=== PATIENT | female | born 1990 | race African-American/Black ===

== ENCOUNTER 2019-09-29 23:27 | Emergency (ER) | payer MEDICAID, OTHER ==
[~2019-09-29] VITALS: Ht 157.5 cm; Wt 52.0 kg
[2019-09-30 01:52] VITALS: BP 137/72
== END 2019-09-30 01:53 | disposition home or self-care (01) ==
LOC: ER 23:27
DX: F41.9 Anxiety disorder, unspecified (principal); Z98.890 Other specified postprocedural states; Z76.0 Encounter for issue of repeat prescription
CPT/HCPCS: 99283